=== PATIENT | male | born 1995 | race Caucasian/White ===

== ENCOUNTER 2018-10-27 14:35 | Emergency (ER) | payer OTHER ==
[~2018-10-27] VITALS: Ht 177.8 cm; Wt 77.1 kg
[2018-10-27] MEDS ORDERED: CRUTCH4 XX (14:57)
[2018-10-27] MEDS ORDERED: NAPR550 PO (15:06)
== END 2018-10-27 15:19 | disposition home or self-care (01) ==
LOC: ER 14:35
DX: M25.562 Pain in left knee (principal)
CPT/HCPCS: 29505; 99283-25